=== PATIENT | male | born 1955 | race Caucasian/White ===

== ENCOUNTER → 2023-10-02 09:01 | Outpatient (REF) | payer BC, SELFPAY | LOC: HWRCS 09:01 | PROVIDERS: ATTENDING PHYSICIAN Internal Medicine Cardiovascular Disease | DX: R94.31 Abnormal electrocardiogram [ECG] [EKG] (principal); I10 Essential (primary) hypertension; R07.89 Other chest pain | CPT/HCPCS: 93306 ==

== ENCOUNTER 2025-01-14 17:04 | Inpatient (IN) | payer BC, MEDICARE, SELFPAY ==
[2025-01-14] VITALS (26 sets, daily range): BP systolic 116–215; BP diastolic 62–121; PULSE 97; BMI 41.6; BMI 45.2
--- NOTE | 2025-01-14 14:11 | ED.GENMED ---
History of Present Illness
General
Chief Complaint: Blood Pressure Problem
Source: patient and spouse
Exam Limitations: none
Time Seen by Provider: 01/14/25 14:00
Nursing documentation reviewed up to this point in time: agreed with
History of Present Illness
History of Present Illness:
69-year-old male with a past medical history of hypertension presents to the ER with his for evaluation of hypertension. Patient reports that blood pressure was noted to be markedly elevated a few days ago when he went to urgent care for a
dental issue�he says he was prescribed clindamycin for mild toothache which seems to be improving but at the time was noted to be severely hypertensive. He says he was told he should go to the ER immediately but did not come open that we improve.
He called his primary doctor for refill of his amlodipine and doxazosin but blood pressure still severely elevated today so he ultimately came to the ER. He has had some increased fatigue and occasional dizziness but otherwise feeling well. No
chest pain or shortness of breath. No other acute issues.
Regarding treatment of his blood pressure�he says that he refilled amlodipine and doxazosin yesterday but says that he had not been taking these for almost a year. He says that his medications ran out; he says that he was having trouble getting in
with his primary doctor and it sounds like he was dissatisfied with his care through his primary and so he has scheduled an appointment to see a new primary care physician on January 27 but has not yet establish care there.
Review of Systems
Review of Systems
All Other Systems: ROS reviewed and negative except as documented in HPI and ROS
Constitutional: Reports fatigue; Denies fever
Respiratory: Denies trouble breathing
Cardiac: Denies chest pain
ABD/GI: Denies abdominal pain
Musculoskeletal: Denies edema
Neurological: Reports dizzy; Denies headache
Phy Exam
Physical Exam
Physical Exam:
General: Awake, alert, oriented x3; no acute distress
Head: Normocephalic, atraumatic
Eyes: Conjunctiva normal, EOMI, pupils equal round and reactive to light bilaterally
Throat: Airway intact, handling secretions
Neck: Trachea midline, supple without meningismus
Lungs: Clear to auscultation bilaterally, no wheezing, rales, rhonchi
Heart: Regular rate and rhythm, no murmurs, gallops, or rubs appreciated
Neuro: Grossly intact
Skin: Warm and dry
Extremities: No edema in extremities, equal pulses in all extremities
Scores
Heart Failure Risk
Heart Failure Risk Score: Not Applicable
Heart Score for Chest Pain Patients
STEMI patient?: Not applicable
Withdrawal Assessment of Alcohol
Withdrawal Assessment Completed?: Not applicable
Course
Orders/Labs/Results
Orders:
Orders
01/14/25 12:38
Electrocardiogram (*1) Urgent
Reason for Study: Fatigue / Weakness
EKG- Treatment ONCE
01/14/25 14:11
Labetalol HCl [Trandate] 10 mg IV NOW STA
01/14/25 14:25
Complete Blood Count/With Diff Urgent
Comprehensive Metabolic Panel Urgent
Hemoglobin A1c [Glycohemoglobin (HgbA1c)] Urgent
TSH Reflex To Free T4 Urgent
Troponin I Urgent
Abnormal Lab Results
01/14/25
14:25
Lymphocytes % 19.1 L %
(20.5-51.1)
Potassium 3.4 L mmol/L
(3.5-5.1)
Carbon Dioxide 34 H mmol/L
(22-30)
Glucose 114 H mg/dl
(70-99)
Troponin I 0.095 H* ng/ml
01/14/25 14:25
01/14/25 14:25
Vital Signs
Initial and Last Documented VS:
Initial Vital Signs
Temp Pulse Resp BP Pulse Ox
36.8 C 86 16 213/116 97
01/14/25 12:34 01/14/25 12:34 01/14/25 12:34 01/14/25 12:34 01/14/25 12:34
Last Documented Vital Signs
Temp Pulse Resp BP Pulse Ox
36.8 C 68 20 192/104 95
01/14/25 12:34 01/14/25 15:00 01/14/25 15:00 01/14/25 15:00 01/14/25 15:00
MDM/Problems Addressed
Differential Diagnosis Includes:
Hypertension
MDM/Problems Addressed:
69-year-old male presents with poorly controlled blood pressure. He has not been compliant with normal blood pressure medications he says for almost a year. He did get a refill from his doctor yesterday for amlodipine and doxazosin but still
severely elevated which prompted ER visit. Blood pressure 213/116 on arrival here but otherwise normal vitals. Physical exam as above. Plan to check basic labs and screening EKG. Will treat with beta-jesi for severe hypertension. Reassess
after the above�if he can be controlled in the ER and has reassuring labs can likely be discharged to see new primary doctor as scheduled on 01/27.
Labs reviewed: CBC and CMP no clinically significant abnormalities�marginally low potassium which we will replete. His troponin was slightly elevated likely from significant blood pressure elevation�will trend this number. Reassessment his blood
pressure remains markedly elevated 190s over 110s despite IV labetalol. Will treat with IV hydralazine. Taking every new account of very poorly controlled blood pressure and poor outpatient follow-up without an established primary doctor as of yet
will plan to admit for continued management of significantly elevated blood pressure and to trend his troponin. Discussed case with hospitalist.
Chronic conditions affecting care:
Hypertension
*Pulse Oximetry
SaO2: 97
Oxygen Mode of Delivery: Room air
Patient hypoxic: no (97%)
*EKG
Interpreted by ED Provider?: Yes
Heart Rate: 81
Rate: normal
Rhythm: sinus
[place]: normal axis
Interval: normal interval
QRS Pattern: left vent hypertrophy
Ischemia: non-specific ST changes
*Critical Care Note
Total Time (30-74mins, 75-104mins- exclusive of procedures): Not Applicable
Data Reviewed
Source: patient and spouse
Patient Management
Social determinants of health affecting care: Poor outpatient follow-up
Discussion with other providers: Hospitalist (Discussed with hospitalist)
Escalation/DeEscalation of care consider admission/obs:
Admission indicated
ED Attending Note
-
Portions of this chart may have been created with voice recognition software.� Occasional wrong word or��sound alike� substitutions may have occurred due to the inherent limitations of voice recognition software.
Discharge Plan
Departure
Patient Disposition: Admit
Date of Disposition: 01/14/25
Time of Disposition: 15:32
Admit to doctor: Willy
Presentation/result/management discussed w/ accepting MD/DO: Hospitalist
Patient with high blood pressure during this ER visit?: Yes
Discharge Problem:
Hypertension
Prescriptions:
New
lisinopril 5 mg tablet
5 mg PO DAILY Qty: 30 0RF
Interventions
Interventions:
*Risk Screen - Suicide Last Done: 01/14/25 14:15
*General Assessment Last Done: 01/14/25 14:15
*Neglect/Abuse Screening Last Done: 01/14/25 14:15
*ED- Fall Risk Assessment Last Done: 01/14/25 14:15
*ED COVID-19 Vaccine History Last Done: 01/14/25 14:15
*ED Influenza Vaccine History Last Done: 01/14/25 14:15
ED- Cardiac Assessment Last Done: 01/14/25 14:29
ED- Neurological Assessment Last Done: 01/14/25 14:16
ED- Pulmonary Assessment Last Done: 01/14/25 14:29
Discharge Date and Time
Print Language: UKRAINIAN
[2025-01-14] MEDS: TRANDATE 10 MG IV (14:27)
[2025-01-14 14:40] LABS: Hematocrit 43.4 % (39.0-52.0); Hemoglobin 14.5 g/dL (13.0-18.0); Mean Corp Hgb Conc. 33.4 g/dL (33.0-37.0); Mean Corpuscular Volume 84.6 fL (80.0-94.0); Nucleated Red Blood Cells % 0 % (-); Platelet Count 231 10^3/uL (130-400); Red Cell Dist. Width 14.5 % (11.5-14.5)
[2025-01-14 14:54] LABS: ALT (SGPT) 42 U/L (0-50); AST (SGOT) 43 U/L (17-59); Albumin 4.5 g/dl (3.5-5.0); Alkaline Phosphatase 73 U/L (38-126); Blood Urea Nitrogen 18 mg/dl (9-20); Calcium 9.2 mg/dl (8.4-10.2); Carbon Dioxide 34 mmol/L (22-30); Chloride 102 mmol/L (98-107); Estimated Creatinine Clearance 93 ml/min; Glucose 114 mg/dl (70-99); Potassium 3.4 mmol/L (3.5-5.1); Sodium 140 mmol/L (135-145); Total Protein 7.7 g/dl (6.3-8.2); eGFR > 60.00
[2025-01-14 15:10] LABS: Troponin I 0.095 ng/ml
--- NOTE | 2025-01-14 15:43 | HPS.HSE ---
Addendum entered and electronically signed by Elida Macias DO 01/14/25 17:42:
The patient was discussed with nurse practitioner, Brynn. I have seen and examined the patient myself and reviewed the history and physical as per below, and agree with the history and physical and assessment and plan of care as per below. The
patient is a 69-year-old gentleman with past medical history significant for hypertension and BPH, recently started on clindamycin for tooth infection, seen by telemedicine for hypertension and started on amlodipine and doxazosin this past Thursday.
He comes to the emergency department secondary to vision changes, dizziness, and shortness of breath, associated with severe hypertension. He went to get up and go to the bathroom prior to this HPI and had shortness of breath associated with
dizziness and he felt like he was having a stroke. CTA of the head is pending at this time. Chest x-ray is pending at this time. The patient's systolic blood pressure remains elevated at 214 mmHg despite 2 doses of IV labetalol and IV hydralazine
in the emergency department.
The patient is being admitted for hypertensive emergency associated with end-organ damage, troponin elevation, vision changes, shortness of breath
Vital signs blood pressure 213/116 mmHg, oxygen saturation 99% on room air, pulse 90, temperature 98.2
HEENT-sclera is pink, eyes are sensitive to light face is flushed,
Cardiovascular -regular rate and rhythm with no murmurs rubs or gallops appreciated, no JVD appreciated
Lungs - clear to auscultation bilaterally without wheezes rales or rhonchi
Abdomen-obese, soft, nontender, nondistended, normoactive bowel sounds
Extremities - no clubbing cyanosis no edema
Neuro-no focal neurologic deficits noted
Labs reviewed and as per below
Troponin is 0.095, second set pending
Potassium 3.[address] of the head shows no acute intracranial abnormalities, findings compatible with nonspecific white matter changes
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
Chest x-ray pending
Assessment and plan of care
# Hypertensive emergency associated with concern for end-organ damage related to symptoms of vision changes and elevated troponin with concern for myocardial injury
- Blood pressure remains elevated and the patient remains symptomatic, starting the patient on nicardipine drip to maintain a systolic blood pressure between 140 and 160 in the emergency department and admitting to the ICU with close monitoring of
neurologic status and telemetry monitoring
-Addition of oral blood pressure medications and slowly wean off the nicardipine drip
-Lithographic Plate Maker Apprentice consultation appreciated
-Trend troponins, if they continue to elevate we will start a heparin drip
-Echocardiogram
-Renal ultrasound
- Portable chest x-ray pending
# Hypokalemia
-Stat magnesium level
-Replete potassium and repeat labs in the morning
# Urinary retention likely due to BPH
- Keep the patient with a bedside commode and bed rest until blood pressure is more stable, bladder scan and straight cath as needed, may require García catheter
- Consider addition of Flomax
# Dental infection
-Continue clindamycin and monitor for signs and symptoms of infection
Additional assessment and plan of care as per below
DVT prophylaxis
Full code
Original Note:
Family Physician
-
Family Physician: Emilio Levine
Chief Complaint
-
Hypertension, dizziness, fatigue, elevated blood pressure
History of Present Illness
69-year-old male who was reportedly been off of his blood pressure medication for approximately 1 year as he ran out. He has been having trouble getting a primary care doctor but did find 1 and has an appointment on January 27. He was treated at
urgent care for dental pain prescribed clindamycin but was severely hypertensive and advised to come to ER for evaluation. He called his primary care doctor for refill of amlodipine and doxazosin but due to persistent elevated hypertension fatigue
with dizziness he was advised to come to ER for evaluation. Upon presentation to the ER his blood pressure was noted to be 210/110. He was given labetalol 10 mg and hydralazine 10 mg with BP now 192/104. At 1715 p.m. patient developed shortness
of breath with dizziness when getting up to walk to the bathroom had difficulty voiding is still complaining of dizziness is still hypertensive above 200 systolic in ER despite medications we will upgrade to ICU start nifedipine drip check chest
x-ray, bladder scans bedside urinal or assistance to bathroom.
He denies fever, chills, sore throat, chest pain, palpitations, cough, shortness of breath, abdominal pain, nausea, vomiting, diarrhea, urinary symptoms. Patient has past medical history of hypertension, gluten intolerance, acoustic neuroma left
side 15 years ago MRI unsure what hospital, class III obesity, suspected sleep apnea.
Medical History
Past Medical History
Past Medical History: Reports Other
Additional Past Medical History:
Hypertension
Gluten intolerance
acoustic neuroma left side 15 years ago MRI unsure what hospital, class III obesity, suspected sleep apnea.
Past Surgical History: Reports Other
Additional Past Surgical History:
Tonsillectomy
Social History
Tobacco: Non-smoker
Alcohol: None
Drug: None
Personal:
Living: With Family
Employment: Employed (naval engineer)
Family History
Family History: Not pertinent
Allergies / Home Medications
Allergies reflects when Allergies were last updated in [facility].
Home Medications with original date entered in [facility]
Allergy/Medication List:
Allergies
Allergy/AdvReac Type Severity Reaction Status Date / Time
Penicillins Allergy Unknown Verified 01/14/25 12:38
Home Medications
lisinopril 5 mg tablet 5 mg PO DAILY #30 tabs 01/14/25
Review of Systems
-
History Source: Patient and Family ( at bedside)
A 12 point ROS was completed and negative except as noted: Yes
Constitutional: Denies Fatigue or Chills
EENT: Reports Other (Eyes bloodshot, current dental pain tooth #7 broken at gumline no gum swelling or facial swelling); Denies Sore Throat or Runny Nose
Respiratory: Denies Cough or Trouble Breathing
Cardiac: Denies Chest Pain, Diaphoresis, Palpitations or Syncope
Abdomen/GI: Denies Abdominal Pain, Nausea, Vomiting, Diarrhea, Constipated, Bloody Stools or Black Stools
: Denies Dysuria, Frequency, Flank Pain, Incontinence, Difficulty Voiding or Urgency
Musculoskeletal: Denies Joint Pain or Edema
Skin: Denies Itching or Rash
Neurological: Reports Dizzy; Denies Headache or Weakness
Endocrine: Reports No Symptoms
Hematologic/Lymphatic: Reports No Symptoms
Psych: Reports Calm
Physical Exam
Vital Signs
Vital Signs
Temp Pulse Resp BP Pulse Ox
98.2 F 68 20 192/104 95
01/14/25 12:34 01/14/25 15:00 01/14/25 15:00 01/14/25 15:00 01/14/25 15:00
Physical Exam
General: Conversant; No Pain, Fever or Chills
HEENT: NormoCephalic, Anicteric, Moist mucous membranes, PERRLA (Eyes bloodshot), [place] Conjunctivae, No Ptosis and Other (Tooth #7 broken at gumline no surrounding swelling or facial swelling)
Respiratory: Clear; No Wheezes, Rales or Rhonchi
Cardiac: S1/S2, Regular Rhythm and Peripheral Edema (Trace bilateral ankles); No Murmur, Rub or Gallop
GI: Soft, Non Distended, Normal Bowel Sounds and Other (Protuberant abdomen)
Genito-urinary: Deferred by me
Musculoskeletal: No Clubbing, No Cyanosis, Edema, Left Lower Extremity (Trace ankle edema) and Edema, Right Lower Extremity (Trace ankle edema); No Edema, Left Upper Extremity or Edema, Right Upper Extremity
Skin: Warm and Dry; No Rash or Jaundice
Neuro: AO x 3, No Motor Deficits, Nonfocal/grossly intact, Cranial Nerves Intact and No Sensory Deficits; No Slurred Speech, Facial Droop, Tremors or Sedated
Psych: Calm
Laboratory Results
-
01/14/25 14:25
01/14/25 14:25
Laboratory Results
Total Bilirubin 1.1 mg/dl (0.2-1.3) 01/14/25 14:25
AST 43 U/L (17-59) 01/14/25 14:25
ALT 42 U/L (0-50) 01/14/25 14:25
Alkaline Phosphatase 73 U/L (38-126) 01/14/25 14:25
Troponin I 0.095 ng/ml H* 01/14/25 14:25
Data Reviewed
-
Lab Data: Labs Reviewed by me
Impression/Plan
-
Impression/plan:
Admit to ICU
#Hypertensive emergency with endorgan damage secondary to noncompliance with BP meds
Has been off meds x 1 year
Dizziness, elevated troponin
BP 210/110 > 192/104 status post IV labetalol, IV hydralazine
- Check CT head given dizziness
- Trend troponin
- Will initiate lisinopril 10 mg, HCTZ 25
- Check UA, HbA1c
-Persistent hypertension systolic greater than 200 will start nifedipine drip
-check chest x-ray given shortness of breath new symptom with ambulation
-Bladder scans bedside urinal or assistance to bathroom.
-Consult roller bearing inspector
-Check renal ultrasound rule out TANISHA
CT head: No acute intracranial abnormalities. Findings compatible with nonspecific white matter changes
#Hypokalemia unclear
K3.4
Will give 40 KCl
Follow BMP, check mag
#Suspected dental infection versus nerve root exposure broken tooth #7 at gumline
Missing widespread teeth throughout mouth
- Patient started clindamycin on 01/12/2025 will continue treatment
- Recommend following up with dentist for likely extraction as tooth is broken to gumline
#Gluten intolerance
-Celiac diet
#Class III obesity�BMI 41.5
Weight loss recommended
#Suspected sleep apnea
- Advised outpatient sleep study
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
DVT prophylaxis
SCDs
Full code
[2025-01-14] MEDS: APRESOLINE 10 MG IV (15:52)
[2025-01-14] MEDS: KCL 40 MEQ PO (17:07)
[2025-01-14] MEDS: ORETIC PO (17:09)
[2025-01-14] MEDS: ZESTRIL PO (17:09)
[2025-01-14 17:11] LABS: Urine Character Clear (Clear)
[2025-01-14 17:22] LABS: Magnesium 2.2 mg/dl (1.6-2.3)
[2025-01-14 17:38] LABS: Troponin I 0.085 ng/ml
[2025-01-14] MEDS: CARDENE 200 IV ×2 (17:46→23:17)
[2025-01-14] MEDS: ZESTRIL 10 MG PO (18:00)
[2025-01-14] MEDS: ORETIC 25 MG PO (18:00)
[2025-01-14 18:59] LABS: Glucose - Point of Care 109 mg/dl (70-99)
--- NOTE | 2025-01-14 19:12 | PTCARENOTE ---
18:15 New admission from Emergency room. Admission Dx Hypertension emergency. Arrived on Cardene 7.5 infusing via Rt AC % 20; BP via left upper arm 164/66; Blood pressure Goal 140-160 per report.
- AAO x 3. Neuro check within normal limits Denies dizziness, denies visio changes
-Normal Sinus Rhythm 94; BP 164/66 denies chest pain
-on RA SpO2: 97% no cough lungs clear
-Abdomen soft round obese Blood sugar 104 last BM: this am prior to admission
- Voiding in a urinal
at bedside call hernández within reach
[2025-01-14] MEDS: CLEOCIN 300 MG PO (23:16)
[2025-01-15] VITALS (27 sets, daily range): BP systolic 105–176; BP diastolic 46–99; BMI 45.3
--- NOTE | 2025-01-15 00:45 | PTCARENOTE ---
Jeremy gtt downtitrating.
No further changes in pt. assessment.
--- NOTE | 2025-01-15 02:33 | PTCARENOTE ---
Cardene gtt remains off.
No further changes in assessment.
[2025-01-15 04:13] LABS: Hematocrit 39.1 % (39.0-52.0); Hemoglobin 13.5 g/dL (13.0-18.0); Mean Corp Hgb Conc. 34.5 g/dL (33.0-37.0); Mean Corpuscular Volume 82.0 fL (80.0-94.0); Nucleated Red Blood Cells % 0 % (-); Platelet Count 210 10^3/uL (130-400); Red Cell Dist. Width 14.6 % (11.5-14.5)
[2025-01-15 04:21] LABS: INR 1.05; PT 14.0 Sec (11.4-14.6)
[2025-01-15 04:22] LABS: APTT 28.9 Sec (23.4-35.0)
[2025-01-15 04:37] LABS: ALT (SGPT) 34 U/L (0-50); AST (SGOT) 35 U/L (17-59); Albumin 3.9 g/dl (3.5-5.0); Alkaline Phosphatase 65 U/L (38-126); Blood Urea Nitrogen 18 mg/dl (9-20); Calcium 8.8 mg/dl (8.4-10.2); Carbon Dioxide 29 mmol/L (22-30); Chloride 104 mmol/L (98-107); Estimated Creatinine Clearance 86 ml/min; Glucose 119 mg/dl (70-99); HDL Cholesterol 31 mg/dl; LDL Cholesterol, Calculated 127 mg/dl; Potassium 3.2 mmol/L (3.5-5.1); Sodium 138 mmol/L (135-145); Total Protein 6.7 g/dl (6.3-8.2); Very Low Density Lipoprotein 31 mg/dl (0-30); eGFR > 60.00
[2025-01-15] MEDS: KCL ELIXIR 40 MEQ TUBE (05:34)
[2025-01-15] MEDS: CLEOCIN 300 MG PO ×3 (07:43→20:40)
[2025-01-15] MEDS: ZESTRIL 10 MG PO ×2 (07:43→20:39)
[2025-01-15] MEDS: ORETIC 25 MG PO ×2 (07:44→20:40)
--- NOTE | 2025-01-15 08:28 | CON.INTV ---
Consultation
Consultation Request
Date/Time Consultation Requested: 01/14/20251715
Date/Time Consultation Performed: 01/15/2025821
Requesting Provider: KERON Lopez
Performing Provider: Dr. Muñoz
Reason for Consultation: HTN crisis
Medical History
-
Chief Complaint: High blood pressure
History of Present Illness:
69-year-old obese male with a past medical history of hypertension, hyperlipidemia, at increased risk of KADY and gluten intolerance who presents with uncontrolled hypertension. Patient says he had a tooth infection last week involving the base
where his tooth implant would be, where his gums have been very inflamed and he was started on clindamycin. He was having dental pain and went to urgent care (where they prescribed the clindamycin) and he was told he was severely hypertensive and
was advised to come to the hospital. He initially went home for about a day before coming back here to the hospital for evaluation. In the ER he was 213/116, he was afebrile, pulse rate 86, respiratory rate 16 and saturating 97% on room air.
Initial labs pertinent for normal WBC at 7.1, potassium 3.4, serum bicarbonate level 34, troponin 0.095, TSH 2.01 urinalysis with no signs of UTI and POCT glucose 109. CT head showed no acute intracranial abnormalities, and CXR showed low lung
volumes with no acute cardiopulmonary process. He was given hydralazine + labetalol in the ER, and due to resistant hypertension with SBP into 200-210s, he was started on Cardene drip and admitted to the ICU for further care. Fashion Photographer service
consulted for additional management/recommendations.
Patient was seen and evaluated today at bedside. Patient was able to be weaned off Cardene drip at 1:30 AM overnight. Current BP is 165/87 with heart rate 70, respiratory rate 22 and he is breathing comfortably on room air, saturating 96%. He
feels well overall. He says his baseline blood pressure is 140�160/80�85.
PMHx: At increased risk of KADY, obesity, hyperlipidemia, hypertension, gluten intolerance
PSHx: Tonsillectomy
Past Medical History
Past Medical History: Other (Above as per HPI)
Past Surgical History: Other (Above as per HPI)
Social History
Tobacco: Non-smoker
Alcohol: None
Drug: None
Employment: Employed (Works for [employer])
Family History
Family History: CAD (Maternal grandmother: Fatal [place])
Allergies / Home Medications
Allergies
Allergy/AdvReac Type Severity Reaction Status Date / Time
Penicillins Allergy Unknown Verified 01/14/25 12:38
Home Medications
�Medication �Instructions �Recorded �Confirmed �Last Taken �Type
amlodipine 5 mg tablet (Norvasc) 5 mg PO DAILY Blood Pressure 01/14/25 01/14/25 30 Days Ago History
~12/15/24
clindamycin HCl 300 mg capsule 300 mg PO TID Infection 01/14/25 01/14/25 01/14/25 History
doxazosin 4 mg tablet 4 mg PO DAILY Blood Pressure 01/14/25 01/14/25 30 Days Ago History
~12/15/24
Review of Systems
-
History Source: Patient
All other systems: Negative unless noted
Vitals / Labs / Diagnostic Testing
Vital Signs
Temp Pulse Resp BP Pulse Ox
98.8 F 76 22 171/92 94
01/15/25 03:56 01/15/25 07:44 01/15/25 06:00 01/15/25 07:44 01/15/25 06:00
Lab Data
01/15/25 03:55
01/15/25 03:55
Laboratory Results
01/15/25
03:55
PT 14.0
INR 1.05
APTT 28.9
Diagnostic Testing:
Physical Exam
-
HEENT: Normocephalic, Anicteric and Other (Thick neck)
Cardiovascular: S1/S2 and Peripheral Edema (Trace lower extremity edema bilaterally)
Respiratory: Clear, Wheeze (negative), Rales (negative), Rhonchi (negative) and Non-Labored Respirations
GI: Soft, Distended (Abdominal obesity), Non Tender and Normal Bowel Sounds
Neurology: AO x 3 and Tremors (negative)
Skin: Warm and Dry
General: Respiratory Distress (negative), Comfortable, Fever (negative) and Chills (negative)
Assessment
-
Assessment: 69-year-old obese male with a past medical history of hypertension, hyperlipidemia, at increased risk of KADY and gluten intolerance who presents with uncontrolled hypertension. Patient says he had a tooth infection last week involving
the base where his tooth implant would be, where his gums have been very inflamed and he was started on clindamycin. He was having dental pain and went to urgent care (where they prescribed the clindamycin) and he was told he was severely
hypertensive and was advised to come to the hospital. He initially went home for about a day before coming back here to the hospital for evaluation. In the ER he was 213/116, he was afebrile, pulse rate 86, respiratory rate 16 and saturating 97%
on room air. Initial labs pertinent for normal WBC at 7.1, potassium 3.4, serum bicarbonate level 34, troponin 0.095, TSH 2.01 urinalysis with no signs of UTI and POCT glucose 109. CT head showed no acute intracranial abnormalities, and CXR showed
low lung volumes with no acute cardiopulmonary process. He was given hydralazine + labetalol in the ER, and due to resistant hypertension with SBP into 200-210s, he was started on Cardene drip and admitted to the ICU for further care. Fashion Photographer
service consulted for additional management/recommendations.
Chronic conditions GLOVE CUTTER: At increased risk of KADY, obesity, hyperlipidemia, hypertension, gluten intolerance
Impression:
#Hypertensive crisis requiring Cardene drip � crisis now resolved
#Hypokalemia
#Elevated opponent likely due to demand ischemia with type II [place] in the setting of uncontrolled hypertension
#Dental infection currently on clindamycin (prescribed by urgent care prior to arrival)
#Urinary retention with suspected BPH
#Hypokalemia
#Obesity
#At increased risk for obstructive sleep apnea
#Hyperlipidemia
#Gluten intolerance
Plan:
- Patient has now been weaned off Cardene drip; continue with PO antihypertensives however careful not to lower SBP by >25% in the first 24 hours otherwise can cause hypoperfusion + ischemia
- His goal BP is <140/90, and he says that his baseline blood pressure: SBP: 140�160, and DBP: 80�85
- Recommend to check blood pressure at home
- Recommend close outpatient follow-up with PCP and possibly with nephrology for hypertension
- Need to work on stress relieving techniques as he says that his job is extremely stressful (works for [employer])
- Defer secondary hypertension workup to primary team; obtain renal artery US to assess for TANISHA
- Given his obesity with hypertension, he is at increased risk for sleep apnea, and this could be contributing to his hypertension
- Recommend outpatient follow-up for sleep disordered breathing discussion and to possibly set up a sleep study
- Troponin peaked at 0.095 on 01/14/2025 � no longer need to continue trending at this time
- He does have a Hx of moderate concentric LVH seen on echo from September 2023
- Cardiology on board and recommendations appreciated
- Recommend outpatient follow-up with dentist for his tooth infection (was originally going to see dentist tomorrow but that now has to be postponed given he is currently hospitalized)
- Continue with clindamycin
- Maintain SpO2 >90-94%
- Maintain MAP>65
- Replete electrolytes with K>4, Mg>2
- Maintain euglycemia with goal BG 140-180; HbA1c: 5.7 on 01/14/2025
- Trend H/H and transfuse if needed to keep Hb>7g/dL; keep plt>20k, unless there is concern for bleeding then keep plt>50k
- prn nebulized bronchodilators - not currently bronchospastic
- Incentive spirometer encouraged 10x per hour for at least 4 hrs a day
- DVT ppx: Start LMWH
Patient is stable for downgrade to telemetry. Outpatient pulmonary/sleep office follow-up will be arranged to discuss sleep disordered breathing as an etiology for his HTN; hopefully will set up a sleep test.
No additional recommendations at this time. Fashion Photographer/Pulmonary service will now sign off. Thank you for allowing us to be involved in the care of this patient. Please reconsult if there are any additional questions/concerns, or if patient's
respiratory status deteriorates.
Total time spent today was 58 minutes for this encounter. Time includes reviewing laboratory test/imaging results, reviewing pertinent medical records, obtaining and reviewing medical history, performing an appropriate exam, ordering medications,
tests and procedures. Time also includes documentation of this encounter, coordinating patient care and communicating with other healthcare professionals. Total time does not include separately billed tests performed on this date of service.
--- NOTE | 2025-01-15 09:05 | PTCARENOTE ---
- 0700 assumed care. Patient in bed. Denies dizziness, SOB, chest discomfort visual changes. Off Cardizem since 1 am: 171/92; Normal Sinus Rhythm 79; SpO2: 98%/RA RR 22; Able to seat up in bed first and then walk in a room with no episode of
dizziness. Cleocin 300 mg for dental infection + Hydrochlorothiazide 25 + Zestril 10 PO Administered.
At this time pateint OOb chair. call hernández within reach. Will monitor BP Q 1 hour
--- NOTE | 2025-01-15 10:54 | W.PN.HOSP.TC ---
Today's Communication/Plan
-
Stable for downgrade to Tele
cont Blood Pressure Control
replete K
ECHO and Renal artery US Thursday
Assessment / Plan
Assessment / Plan
Physical Exam
General: No acute distress, appears comfortable at this time, Obese
HEENT: NormoCephalic, Anicteric, Moist mucous membranes, Tooth #7 broken at gumline no surrounding swelling or facial swelling
Respiratory: Clear; No Wheezes, Rales or Rhonchi
Cardiac: S1/S2, Regular Rhythm and Peripheral Edema (Trace bilateral ankles); No Murmur, Rub or Gallop
GI: Soft, Non Distended, nontender, Normal Bowel Sounds
Musculoskeletal: No Clubbing, No Cyanosis, Trace ankle edema b/l
Skin: Warm and Dry; No Rash or Jaundice
Neuro: AO x 3 conversant coherent
Psych: Calm
69M HTN Obesity hx Acoustic Neuroma here for hypertensive emergency. Briefly admitted to ICU for Nicardipine gtt since weaned off downgraded to Tele.
#Hypertensive emergency with end organ damage secondary to noncompliance with BP meds
Has been off meds for months to yr
Dizziness, elevated troponin
- admitted to ICU weaned off nicardipine gtt, stable for downgrade to Tele Hospital day 2
- CT head appreciated no acute abn's
- Initial troponin 0.095 since trended down, chest pain free, likely non-ischemic myocardial injury
- Started on lisinopril 10 mg, HCTZ 25, Lisinopril increased to BID as per Cardio
-Cardio eval appreciated
-Nifedipine XL 30 mg daily added with holding parameters SBP<140 (to avoid overcorrection)
-Labetalol prn SBP>160 or DBP>100
- UA and HbA1c unremarkable
-CXR appreciated no acute abn's
-Consult inspector machine parts appreciated
-Check renal ultrasound rule out TANISHA
-Check ECHO
#Hypokalemia
monitor and replete as necessary
#Suspected dental infection versus nerve root exposure broken tooth #7 at gumline
Missing widespread teeth throughout mouth
-Patient started clindamycin on 01/12/2025 will continue treatment
-Recommend following up with dentist for likely extraction as tooth is broken to gumline
#Gluten intolerance
-Celiac diet
#Class III obesity�BMI 41.5
Weight loss recommended
#Suspected sleep apnea
- Advised outpatient sleep study
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
DVT prophylaxis
SCDs
Full code
I spent a total of 40 minutes with the patient or on the floor. More than 50% of this time involved counseling and coordination of care.
Anticipated Discharge: 24 - 48 hours
Subjective/Interval History
-
Date of Service: January 15, 2025
No acute distress, sitting up comfortably in chair, overall reports feeling well. Denies new acute issues.
Objective Data
-
Labs:
Laboratory Results
01/15/25
03:55
WBC 8.3
Hgb 13.5
Hct 39.1
Plt Count 210
PT 14.0
INR 1.05
APTT 28.9
Sodium 138
Potassium 3.2 L
Chloride 104
Carbon Dioxide 29
BUN 18
Creatinine 1.0
Glucose 119 H
Calcium 8.8
Total Bilirubin 1.2
AST 35
ALT 34
Alkaline Phosphatase 65
Vital Signs:
Vital Signs
Temp Pulse Resp BP Pulse Ox
97.8 F 74 17 137/89 96
01/15/25 09:42 01/15/25 09:40 01/15/25 09:40 01/15/25 09:40 01/15/25 07:45
I&O
01/14/25 01/15/25 01/16/25
06:59 06:59 06:59
Intake Total 300.0 / 300.0 340 / 340
Output Total 1175 / 1175
Balance -875.0 / -875.0 340 / 340
[2025-01-15] MEDS: PROCARDIA XL (EXTENDED RELEASE) 30 MG PO (12:34)
--- NOTE | 2025-01-15 13:02 | CON.CAR ---
Consultation
Consultation Request
Date/Time Consultation Requested: January 15, 2025 11 AM
Date/Time Consultation Performed: January 15, 2025 1 PM
Requesting Provider: Hospitalist
Performing Provider: Jaquan Salomon
Reason for Consultation: Hypertension elevated troponin
Medical History
-
Chief Complaint: Headache high blood pressure
History of Present Illness:
61-year-old male with past medical history of hypertension is here because of a headache and high blood pressure. He tells me over the last several days he has been having headaches possibly associated with a dental infection. However, I was at
the dentist office his blood pressure was significantly elevated. He has been taking this at home and it is routinely greater than 200 systolics. He then began to have dizziness and some shortness of breath with ambulation. This occurred in the
emergency room despite medications and he was admitted to the ICU on nifedipine drip. His troponins were mildly elevated at this time and in the setting.
In discussing with him he denies any significant chest pain. He tells me he has been on and off blood pressure medications and his most recently stopped taking them and reasons are unclear. He tells me they may have just stopped working but it
seems that he also had stopped seeing a doctor.
Past Medical History
Past Medical History: HTN and Other (Obesity possible acoustic neuroma)
Past Surgical History: Tonsilectomy
Social History
Tobacco: Non-Smoker
Alcohol: None
Drug: None
Personal:
Living: With Family
Employment: Employed
Family History
Family History: Reviewed & Not Pertinent
Allergies / Home Medications
Allergy/AdvReac Type Severity Reaction Status Date / Time
Penicillins Allergy Unknown Verified 01/14/25 12:38
�Medication �Instructions �Recorded �Confirmed �Type
amlodipine 5 mg tablet (Norvasc) 5 mg PO DAILY Blood Pressure 01/14/25 01/14/25 History
clindamycin HCl 300 mg capsule 300 mg PO TID Infection 01/14/25 01/14/25 History
doxazosin 4 mg tablet 4 mg PO DAILY Blood Pressure 01/14/25 01/14/25 History
Review of Systems
-
All other systems: Negative unless noted
Physical Exam
Vital Signs
Temp Pulse Resp BP Pulse Ox
97.8 F 72 17 176/90 96
01/15/25 09:42 01/15/25 12:34 01/15/25 11:00 01/15/25 12:34 01/15/25 07:45
Lab Results
01/15/25 03:55
01/15/25 03:55
Troponin I 0.085 ng/ml H* 01/14/25 17:05
Physical Exam
General: Well Developed, Well Nourished and No Apparent Distress
HEENT: Normocephalic
Respiratory: Non Labored Respirations
Cardiac: S1/S2 and Other (Distant heart sounds)
GI: Soft
Musculoskeletal: No Edema
Skin: Warm and Dry
Neuro: AO x 3
Psych: Calm
Impression / Plan
-
A/P: 69-year-old male with past medical history of hypertension who is here for hypertensive emergency. His blood pressure has improved and is now off nifedipine drip.
Hypertensive emergency
- Increase lisinopril to twice daily
- Start nifedipine 30 mg daily
- Continue HCTZ
- Update echocardiogram
- Given lack of symptoms mildly elevated troponin is likely nonischemic myocardial injury secondary to significant hypertension
Hypokalemia
Obesity
Likely KADY
We will continue to follow
Data Reviewed
-
EKG: Tracing Personally Visualized and interpreted (Sinus rhythm)
Medical Tests (Nuc Med, Echo etc): Report Reviewed by me
Labs: Labs Reviewed by me
--- NOTE | 2025-01-15 14:04 | CM ---
ag service manager reviewed patient's chart and met with patient and patient lives with his spouse and step children in a 2 story home, patient states his bedroom is on the 1st floor with the stepchildren upstairs, patient is independent with adl's and
ambulation, no dme, patient drives, home when stable.
PCP: Emilio Levine
Pharmacy: [facility] in [place]
--- NOTE | 2025-01-15 14:20 | PTCARENOTE ---
Transfer to room 414-1
Patient AAO x 3; Denies chest discomfort; change in visio. BP via RT Upper arm 130/73 MAP 89; Normal Sinus Rhythm 80; RR 17 98%RA. patient will make his aware regarding transfer
[2025-01-15 14:49] LABS: Glycohemoglobin (HgbA1c) 5.7 % (4.0-5.9)
--- NOTE | 2025-01-15 16:14 | PTCARENOTE ---
rec'd pt from ICU. walked to bed. denies pain. telemetry pack placed on pt. oriented to room. call hernández in reach.
[2025-01-15] MEDS: KLOR-CON 20 MEQ PO (16:39)
[2025-01-16 03:00] VITALS: BP 131/70
[2025-01-16 07:00] VITALS: BP 189/101; BP 208/122
--- NOTE | 2025-01-16 08:01 | W.PN.CD ---
Today's Communication / Plan
-
increase nifedipine
cotninue HCTZ at 25
cotninue current acei
check renin/mike
renal u/s
echo
Impression / Plan
-
A/P: 69-year-old male with past medical history of hypertension who is here for hypertensive emergency. His blood pressure has improved and is now off nifedipine drip.
Hypertensive emergency
- Yesterday increased lisinopril to twice daily
- nifedipine 30 mg daily added yesterday--will increase
- Continue HCTZ--but would not increase to 50mg givne hypokalemia
- Update echocardiogram
-Given hypokalemia on presentation will check renin/ald
-Renal u/s orded
-needs op sleep study
- Given lack of symptoms mildly elevated troponin is likely nonischemic myocardial injury secondary to significant hypertension
Hypokalemia
Obesity
Likely KADY
Physical Exam
Vital Signs/Labs
Vital Signs
Temp Pulse Resp BP Pulse Ox
97.7 F 83 18 131/70 97
01/16/25 03:00 01/16/25 03:00 01/16/25 03:00 01/16/25 03:00 01/16/25 03:00
01/15/25 01/16/25 01/17/25
06:59 06:59 06:59
Actual Weight 272 lb 4.334 oz
PT 14.0 Sec (11.4-14.6) 01/15/25 03:55
INR 1.05 01/15/25 03:55
APTT 28.9 Sec (23.4-35.0) 01/15/25 03:55
Magnesium 2.2 mg/dl (1.6-2.3) 01/14/25 14:25
Triglycerides 158 mg/dl (10-149) H 01/15/25 03:55
LDL Cholesterol, Calc 127 mg/dl 01/15/25 03:55
VLDL Cholesterol, Calc 31 mg/dl (0-30) H 01/15/25 03:55
HDL Cholesterol 31 mg/dl 01/15/25 03:55
LAB Results
01/14/25 01/14/25
14: 17:05
Troponin I 0.095 H* 0.085 H*
Physical Exam
Constitutional: No acute distress
Cardiovascular: Rhythm & rate is regular, Pedal edema is absent, JVD pressure is normal, Systolic murmur absent and Diastolic murmur absent
Respiratory: Respiratory effort normal, Lungs clear to auscul., Wheeze Absent, Crackles Absent and Rhonchi Absent
Neuro/Psych: AO x 3
Data Reviewed
-
Date of Service: January 16, 2025
EKG: Other (tele nsr )
[2025-01-16 08:03] LABS: Hematocrit 44.4 % (39.0-52.0); Hemoglobin 14.8 g/dL (13.0-18.0); Mean Corp Hgb Conc. 33.3 g/dL (33.0-37.0); Mean Corpuscular Volume 84.9 fL (80.0-94.0); Platelet Count 209 10^3/uL (130-400); Red Cell Dist. Width 15.0 % (11.5-14.5)
[2025-01-16] MEDS: PROCARDIA XL (EXTENDED RELEASE) 30 MG PO ×2 (08:06→09:43)
[2025-01-16] MEDS: ZESTRIL 10 MG PO ×2 (08:07→20:08)
[2025-01-16 08:45] LABS: Blood Urea Nitrogen 17 mg/dl (9-20); Calcium 9.3 mg/dl (8.4-10.2); Carbon Dioxide 34 mmol/L (22-30); Chloride 101 mmol/L (98-107); Estimated Creatinine Clearance 86 ml/min; Glucose 113 mg/dl (70-99); Magnesium 2.2 mg/dl (1.6-2.3); Potassium 4.3 mmol/L (3.5-5.1); Sodium 141 mmol/L (135-145); eGFR > 60.00
[2025-01-16] MEDS: CLEOCIN 300 MG PO ×3 (09:43→20:07)
[2025-01-16 11:06] VITALS: BP 154/88
--- NOTE | 2025-01-16 12:15 | CARDSERVLU ---
Echocardiogram with [facility]ason completed after protocol screening completed. Allergies verified.
Patent IV site: __L FA___
IV site flushed with 0.9% NaCl pre and post administration.
Diluted bolus method utilized to enhance visualization of ventricular mathews.
Total volume given: __2.5 ml__ mL
Patient tolerated all procedures well without complications.
--- NOTE | 2025-01-16 12:22 | CM ---
Chart reviewed. Care ongoing.
ECHO and Renal artery US today
CM will cont to follow for d/c needs
Plan: Home, no needs at this time
--- NOTE | 2025-01-16 13:16 | W.PN.HOSP.TC ---
Today's Communication/Plan
-
Continue to follow blood pressure with adjustments in the medication today.
DC planning
Assessment / Plan
Assessment / Plan
69M HTN Obesity hx Acoustic Neuroma here for hypertensive emergency. Briefly admitted to ICU for Nicardipine gtt since weaned off downgraded to Tele.
#Hypertensive emergency with end organ damage secondary to noncompliance with BP meds
Has been off meds for months to yr
Dizziness, elevated troponin
- CT head appreciated no acute abn's
- Initial troponin 0.095 since trended down, chest pain free, likely non-ischemic myocardial injury
- Of off nicardipine gtt
- Continue with lisinopril 10 mg, HCTZ 25, Lisinopril increased to BID as per Cardio
-Nifedipine dose increased to 60 mg daily by cardiology
-Labetalol prn SBP>160 or DBP>100
- UA and HbA1c unremarkable
-CXR appreciated no acute abn's
- Echo with LVH
- Ultrasound without evidence of bilateral renal artery stenosis
#Suspected dental infection versus nerve root exposure broken tooth #7 at gumline
Missing widespread teeth throughout mouth
-Patient started clindamycin on 01/12/2025 will continue treatment
-Recommend following up with dentist for likely extraction as tooth is broken to gumline
#Gluten intolerance
-Celiac diet
#Class III obesity�BMI 41.5
Weight loss recommended
#Suspected sleep apnea
- Advised outpatient sleep study
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
DVT prophylaxis
SCDs
Full code
Anticipated Discharge: 24 - 48 hours
Subjective/Interval History
-
Date of Service: January 16, 2025
Voices no specific complaints.
Denies any chest pain, shortness of breath.
No dizziness.
No nausea vomiting.
Objective Data
-
Labs:
Laboratory Results
01/16/25
07:39
WBC 7.6
Hgb 14.8
Hct 44.4
Plt Count 209
Sodium 141
Potassium 4.3 D
Chloride 101
Carbon Dioxide 34 H
BUN 17
Creatinine 1.0
Glucose 113 H
Calcium 9.3
Vital Signs:
Vital Signs
Temp Pulse Resp BP Pulse Ox
98.0 F 90 18 154/88 97
01/16/25 11:06 01/16/25 11:06 01/16/25 11:06 01/16/25 11:06 01/16/25 11:06
I&O
01/15/25 01/16/25 01/17/25
06:59 06:59 06:59
Intake Total 300.0 / 300.0 1420 / 1420
Output Total 1175 / 1175
Balance -875.0 / -875.0 1420 / 1420
Physical Exam
-
General: Comfortable
Respiratory: Clear to Auscultation and Non Labored Respirations; Negative Accessory Resp Muscle Use
Cardiac: Regular Rhythm and S1/S2; Negative Tachycardic
GI: Soft
Neuro: AO x 3
Psych: Negative Confused
Data Reviewed
-
Labs: Labs Reviewed by me
[2025-01-16 15:21] VITALS: BP 140/60
[2025-01-16 19:33] VITALS: BP 160/84
[2025-01-16 23:20] VITALS: BP 164/94
[2025-01-17 03:07] VITALS: BP 160/91
[2025-01-17 07:59] VITALS: BP 178/100
[2025-01-17] MEDS: CLEOCIN 300 MG PO (08:02)
[2025-01-17] MEDS: ZESTRIL 20 MG PO (08:02)
[2025-01-17] MEDS: ORETIC 25 MG PO (08:02)
[2025-01-17] MEDS: PROCARDIA XL (EXTENDED RELEASE) 60 MG PO (08:03)
--- NOTE | 2025-01-17 09:07 | W.PN.CD ---
Today's Communication / Plan
-
If next BP is less than or equal to 160/100, patient is safe for discharge today. We discussed return precautions. He will need titration of antihypertensives as an outpatient.
Antihypertensive regimen: HCTZ 25 mg daily, lisinopril 20 mg twice daily, nifedipine 60 mg daily
He is planning to establish care with a new PCP in early January. He will see if they think he needs cardiology follow-up and reach out to our office.
He has a BP cuff at home. I advised him to check daily and bring a log with BP cuff to next PCP visit.
Impression / Plan
-
A/P: 69-year-old male with past medical history of hypertension who is here for hypertensive emergency. His blood pressure has improved and is now off nifedipine drip.
Hypertensive emergency
-Severe LVH by echo.
-Increase lisinopril to 20 mg twice daily
-Continue nifedipine 60 mg daily
-Continue HCTZ 25 mg daily
-Given hypokalemia on presentation will check renin/ald --pending
-Renal u/s with no stenosis
-needs op sleep study
Troponin elevation
-Given lack of symptoms mildly elevated troponin is likely nonischemic myocardial injury secondary to significant hypertension
Hypokalemia
Obesity
Likely KADY
Subjective: Asymptomatic.
Physical Exam
Vital Signs/Labs
Vital Signs
Temp Pulse Resp BP Pulse Ox
98.2 F 82 16 178/100 98
01/17/25 07:59 01/17/25 07:59 01/17/25 07:59 01/17/25 07:59 01/17/25 07:59
01/16/25 07:39
01/16/25 07:39
PT 14.0 Sec (11.4-14.6) 01/15/25 03:55
INR 1.05 01/15/25 03:55
APTT 28.9 Sec (23.4-35.0) 01/15/25 03:55
Magnesium 2.2 mg/dl (1.6-2.3) 01/16/25 07:39
Triglycerides 158 mg/dl (10-149) H 01/15/25 03:55
LDL Cholesterol, Calc 127 mg/dl 01/15/25 03:55
VLDL Cholesterol, Calc 31 mg/dl (0-30) H 01/15/25 03:55
HDL Cholesterol 31 mg/dl 01/15/25 03:55
LAB Results
01/14/25 01/14/25
: 17:05
Troponin I 0.095 H* 0.085 H*
Physical Exam
Constitutional: No acute distress and Comfortable
Cardiovascular: Rhythm & rate is regular, Pedal edema is absent, S1S2 is normal and Murmur/rub/gallop absent
Respiratory: Respiratory effort normal and Lungs clear to auscul.
Neuro/Psych: AO x 3
Data Reviewed
-
Date of Service: January 17, 2025
Medical Decision Making: Reviewed Test Results, Test Interpretation and Review of Case with other Provider
EKG: Tracing Personally Visualized and interpreted
Echo: Report Reviewed by me
Labs: Labs Reviewed by me
[2025-01-17 09:45] VITALS: BP 151/79
--- NOTE | 2025-01-17 10:52 | W.DCSUMMARY ---
Discharge Summary
Discharge Data
Date of Admission: 01/14/25
Date of Discharge: 01/17/25
-
Pending Results: No
Hospital Course
Primary diagnosis:
Hypertensive emergency
Severe LVH by echo
Suspected sleep apnea
Secondary diagnosis:
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
Hospital course:
69-year-old gentleman with a history of hypertension not compliant with the medication presented with vision changes, dizziness and shortness of breath associate with severe hypertension. He recently had a telemedicine visit and was started on
amlodipine and doxazosin this past Thursday. Admission his blood pressure was 213/116. Diagnosed with hypertensive emergency. CT of the head showed no evidence of acute intracranial abnormality. He was admitted to ICU was put on nicardipine drip
and slowly transitioning to oral medication. Seen by cardiology. His blood pressure stabilized with the introduction of hydrochlorothiazide, lisinopril, and nifedipine. His doxazosin and amlodipine was discontinued this admission. He had a renal
artery duplex ultrasound which showed no evidence of stenosis. Echo showed LVH. No evidence of heart failure.
Today patient was feeling better without any symptoms. Denied any chest pain or shortness of breath. No dizziness. His blood pressure was 151/79. Pulse was 80. Saturating well on room air at 98%. Chest was clear.
Was deemed medically stable for discharge home. He was advised to follow with the PCP and if needed then get a referral to cardiology. He has a BP cuff at home advised her to check daily and take a log of blood pressure readings to the next PCP
visit.
While he is here in the ICU the java developer consultant felt there is a suspicion of sleep apnea and advised to follow-up with them as an outpatient.
Consultants on board:
Pulmonary-Matt Voss
Cardiology - Jaquan Cantu
Portions of this chart may have been created with voice recognition software. Occasional wrong word or 'sound alike' substitutions may have occurred due to the inherent limitations of voice recognition software.
Discharge Plan
-
Patient Disposition: Home (Routine Discharge)
Discharge Diagnosis/Procedures: Hypertensive emergency with end organ damage secondary to noncompliance with BP meds
Diet: 2 Gram Sodium
Activity: As tolerated
Driving Restrictions: As prior to admission
Bathing Restrictions: None
Referrals:
Matt Muñoz MD [Active, Pulmonary Medicine] - in three to four weeks
Emilio Levine MD [Family Provider, Internal Medicine] - in less than 1 week
Prescriptions:
New
lisinopril 20 mg Tablet
20 mg PO BID Qty: 60 0RF
hydrochlorothiazide 25 mg Tablet
25 mg PO DAILY Qty: 30 0RF
nifedipine 60 mg Tablet Extended Release
60 mg PO DAILY Qty: 30 0RF
Continued
clindamycin HCl 300 mg Capsule
300 mg PO TID
Rx Instructions:
FOR 10 DAYS STARTING 01/11/25
Discontinued
amlodipine [Norvasc] 5 mg Tablet
5 mg PO DAILY
doxazosin 4 mg Tablet
4 mg PO DAILY
Discharge Orders:
Discharge Patient (As Directed); Ordered 01/17/25
Ordered By: Patrick Carvalho
Discharge Date and Time
Print Language: UGANDAN
[2025-01-17 10:59] VITALS: BP 153/72
--- NOTE | 2025-01-17 11:32 | CM ---
Patient will d/c home today
No CM needs at this time
Plan: Home, no needs
[2025-01-18 17:53] LABS: Aldosterone/Renin Activ Ratio 5.2 ratio (<=25.0); Renin Activity Results 3.7 ng/mL/hr
== END 2025-01-17 11:55 | disposition home or self-care (01) | DRG 305 ==
LOC: 4 WEST ACU 17:04
PROVIDERS: Clinical Nurse Specialist Family Health; Internal Medicine Cardiovascular Disease; ADMITTING PHYSICIAN Internal Medicine; ATTENDING PHYSICIAN Internal Medicine; CONSULT PHYSICIAN Internal Medicine Cardiovascular Disease; CONSULT PHYSICIAN Internal Medicine Critical Care Medicine; EMERGENCY PHYSICIAN Emergency Medicine; FAMILY PHYSICIAN Internal Medicine
DX: I16.1 Hypertensive emergency (principal); I5A Non-ischemic myocardial injury (non-traumatic); K90.41 Non-celiac gluten sensitivity; Z68.41 Body mass index [BMI] 40.0-44.9, adult; E87.6 Hypokalemia; E78.5 Hyperlipidemia, unspecified; E66.813 Obesity, class 3; Z91.148 Patient's other noncompliance with medication regimen for other reason; Z79.899 Other long term (current) drug therapy
CPT/HCPCS: 70450; 71045; 80048; 80053; 80061; 81003; 82088; 82962; 83036; 83735; 84100; 84244; 84443; 84484; 85025; 85027; 85610; 85730; 93005; 93306; 93975; 96365; 96375; 99285; Q9950